=== PATIENT | female | born 1985 | race Caucasian/White ===

== ENCOUNTER 2018-01-08 15:08 | Emergency (ER) | payer BC ==
[2018-01-08] MEDS ORDERED: Sodium Chloride 0.9% 1000 ML 1,000 ML IV STA (16:13)
--- NOTE | 2018-01-08 16:13 | ERPHSYRPT ---
- History of Present Illness Time Seen by Provider: 01/08/18 16:10 Source: patient Exam Limitations: no limitations Patient Subjective Stated Complaint: STATES PALPITATIONS X 3 HOURS Triage Nursing Assessment: ALERT AND ORIENTED. PERIPHERAL PULESES WNL RADIAL AND PEDAL. LUNGS CLEAR TO AUSCULTATION. Physician History: The patient is a 32-year-old female complaining that she has palpitations that began about 4 hours ago. The palpitations are improving. She has a known hypothyroid condition and has been taking Synthroid. 3 weeks ago her Synthroid was increased to 125 g from 100 g daily. She rarely drinks caffeinated beverages but today she drank Mountain Dew prior to the palpitations. At first she said she was a little bit lightheaded but now things have improved and she is no longer lightheaded. She denies chest pain. Her past medical history is significant for hypothyroidism and tubal ligation. Timing/Duration: today, hour(s) (4), sudden, improved Activities at Onset: none Quality: fullness Severity of Pain-Max: none Severity of Pain-Current: none Modifying Factors: Improves With: nothing Nitro Today/Relief: no nitro taken today Aspirin Treatment Today: no aspirin today Associated Symptoms: denies symptoms, No shortness of breath Prior Chest Pain/Cardiac Workup: no prior chest pain Allergies/Adverse Reactions: No Known Drug Allergies Allergy (Unverified 01/22/15 08:22) Home Medications: Levothyroxine Sodium 100 Mcg [Synthroid 100 Mcg] 125 mcg PO DAILY 01/08/18 [History] Hx Tetanus, Diphtheria Vaccination/Date Given: Yes Hx Influenza Vaccination/Date Given: Yes (11/2017) Hx Pneumococcal Vaccination/Date Given: No - Review of Systems Constitutional: No Fever, No Chills Eyes: No Symptoms Ears, Nose, & Throat: No Symptoms Respiratory: No Cough, No Dyspnea Cardiac: Palpitations Abdominal/Gastrointestinal: No Abdominal Pain, No Nausea, No Vomiting, No Diarrhea Genitourinary Symptoms: No Dysuria Musculoskeletal: No Back Pain, No Neck Pain Skin: No Rash Neurological: No Dizziness, No Focal Weakness, No Sensory Changes Psychological: No Symptoms Endocrine: No Symptoms Hematologic/Lymphatic: No Symptoms Immunological/Allergic: No Symptoms All Other Systems: Reviewed and Negative - Past Medical History Pertinent Past Medical History: No Neurological History: No Pertinent History ENT History: No Pertinent History Cardiac History: No Pertinent History Respiratory History: No Pertinent History Endocrine Medical History: Hypothyroidism Musculoskeletal History: No Pertinent History GI Medical History: No Pertinent History History: No Pertinent History Psycho-Social History: No Pertinent History Female Reproductive Disorders: Other Other Medical History: d & c after miscarriage - Past Surgical History Past Surgical History: Yes Neuro Surgical History: No Pertinent History Cardiac: No Pertinent History Respiratory: No Pertinent History Gastrointestinal: No Pertinent History Genitourinary: No Pertinent History Musculoskeletal: No Pertinent History Female Surgical History: Tubal Ligation, Other Other Surgical History: d & c. cyst removed from jaw - Social History Smoking Status: Never smoker Exposure to second hand smoke: No Drug Use: none Patient Lives Alone: No - Female History Hx Last Menstrual Period: 01/01/18 Hx Now: No - Nursing Vital Signs Nursing Vital Signs: Initial Vital Signs Temperature 97.8 F 01/08/18 15:09 Pulse Rate 93 H 01/08/18 15:09 Respiratory Rate 18 01/08/18 15:09 Blood Pressure 141/92 01/08/18 15:09 O2 Sat by Pulse Oximetry 100 01/08/18 15:09 Pain Scale Pain Intensity 0 - Physical Exam General Appearance: no apparent distress, alert Eye Exam: PERRL/EOMI, eyes nml inspection Ears, Nose, Throat Exam: normal ENT inspection, moist mucous membranes Neck Exam: normal inspection, non-tender, supple Respiratory Exam: normal breath sounds, lungs clear, No respiratory distress Cardiovascular Exam: regular rate/rhythm, normal heart sounds, No edema Gastrointestinal/Abdomen Exam: soft, No tenderness, No mass Pelvic Exam: not done Rectal Exam: not done Back Exam: normal inspection, No CVA tenderness, No vertebral tenderness Extremity Exam: normal inspection, normal range of motion Neurologic Exam: alert, oriented x 3, cooperative, normal mood/affect, nml cerebellar function, sensation nml, No motor deficits Skin Exam: normal color, warm, dry Lymphatic Exam: No adenopathy SpO2 Interpretation: normal SpO2: 100 Oxygen Delivery: Room Air - Course EKG Interpreted by Me: RATE, Sinus Rhythm, NORMAL AXIS, NORMAL INTERVALS, NORMAL QRS, NORMAL ST-T Ordered Tests: Active Orders 24 hr Category Date Time Status Clean Catch Urine Specimen STAT Care 01/08/18 16:13 Active EKG-ER Only STAT Care 01/08/18 16:13 Active IV Insertion STAT Care 01/08/18 16:13 Active CHEST 2 VIEWS (PA AND LAT) Stat Exams 01/08/18 16:14 Taken CBC W DIFF Stat Lab 01/08/18 16:00 Completed CMP Stat Lab 01/08/18 16:00 Completed TROPONIN Q3H Lab 01/08/18 16:00 Completed TROPONIN Q3H Lab 01/08/18 19:15 Ordered TROPONIN Q3H Lab 01/08/18 22:15 Ordered TROPONIN Q3H Lab 01/09/18 01:15 Ordered TROPONIN Q3H Lab 01/09/18 04:15 Ordered UA W/RFX UR CULTURE Stat Lab 01/08/18 16:14 Uncollected Urine Triage Profile Stat Lab 01/08/18 16:14 Uncollected Medication Summary Generic Name Dose Route Start Last Admin Trade Name Freq PRN Reason Stop Dose Admin Sodium Chloride 1,000 mls @ 999 mls/hr 01/08/18 16:13 01/08/18 16:29 Sodium Chloride 0.9% 1000 Ml IV 01/08/18 17:13 999 mls/hr .Q1H1M STA Administration Discontinued Medications Generic Name Dose Route Start Last Admin Trade Name Freq PRN Reason Stop Dose Admin Sodium Chloride Confirm 01/08/18 16:28 Sodium Chloride 0.9% 1000 Ml Administered 01/08/18 16:29 Dose 1,000 mls @ ud .ROUTE .STK-MED ONE Lab/Rad Data: Laboratory Result Diagrams 01/08/18 16:00 01/08/18 16:00 Laboratory Results 01/08/18 01/08/18 01/08/18 Range/Units 16:00 16:00 16:00 WBC 6.1 (4.0-10.5) K/mm3 RBC 3.87 L (4.1-5.4) M/mm3 Hgb 12.6 (12.0-16.0) gm/dl Hct 38.6 (35-47) % MCV 99.7 (78-100) fl MCH 32.5 H (26-32) pg MCHC 32.6 (32-36) g/dl RDW 12.9 (11.5-14.0) % Plt Count 143 L (150-450) K/mm3 MPV 13.9 H (6-9.5) fl Gran % 54.0 (36.0-66.0) % Eos # (Auto) 0.14 (0-0.5) Absolute Lymphs (auto) 2.06 (1.0-4.6) Absolute Monos (auto) 0.57 (0.0-1.3) Lymphocytes % 34.0 (24.0-44.0) % Monocytes % 9.4 (0.0-12.0) % Eosinophils % 2.3 (0.00-5.0) % Basophils % 0.3 (0.0-0.4) % Absolute Granulocytes 3.27 (1.4-6.9) Basophils # 0.02 (0-0.4) Sodium 141 (137-145) mmol/L Potassium 3.8 (3.5-5.1) mmol/L Chloride 106 (98-107) mmol/L Carbon Dioxide 25 (22-30) mmol/L Anion Gap 14.9 (5-15) MEQ/L BUN 13 (7-17) mg/dL Creatinine 0.67 (0.52-1.04) mg/dL Estimated GFR > 60.0 ML/MIN Glucose 110 H (74-106) mg/dL Calcium 9.5 (8.4-10.2) mg/dL Total Bilirubin 0.70 (0.2-1.3) mg/dL AST 18 (14-36) U/L ALT 13 (0-35) U/L Alkaline Phosphatase 55 (38-126) U/L Troponin I < 0.012 (0.000-0.034) ng/mL Serum Total Protein 7.9 (6.3-8.2) g/dL Albumin 4.9 (3.5-5.0) g/dL - Progress Progress: improved Air Movement: good Blood Culture(s) Obtained: No Antibiotics given: No Counseled pt/family regarding: lab results, diagnosis, rad results - Departure Time of Disposition: 16:51 Departure Disposition: Home Clinical Impression: Heart palpitations Condition: Stable Critical Care Time: No Referrals: JENNY LEON MD [Primary Care Provider] - Additional Instructions: You have heart palpitations. The palpitations may have been caused by the caffeinated drink you had this morning. Please refrain from caffeinated drinks. Follow-up with your primary medical doctor next week. If the condition returns and he become lightheaded, do not hesitate to return to the ER.
[2018-01-08 16:20] LABS: BASOPHIL % 0.3 % (0.0-0.4); Basophil (Absolute #) 0.02 (0-0.4); Eosinophil % 2.3 % (0.00-5.0); Eosinophil (Absolute #) 0.14 (0-0.5); Granulocyte Absolute (ANC) 3.27 (1.4-6.9); Hematocrit 38.6 % (35-47); Hemoglobin 12.6 gm/dl (12.0-16.0); Lymphocyte (Absolute #) 2.06 (1.0-4.6); Mean Cell Volume 99.7 fl (78-100); Mean Corpuscular Hgb Concent. 32.6 g/dl (32-36); Mean Platelet Volume 13.9 fl (6-9.5); Monocyte (Absolute #) 0.57 (0.0-1.3); Monocytes % 9.4 % (0.0-12.0); Platelet Count 143 K/mm3 (150-450); Red Blood Count 3.87 M/mm3 (4.1-5.4); Red Cell Distribution Width 12.9 % (11.5-14.0); White Blood Count 6.1 K/mm3 (4.0-10.5)
[2018-01-08 16:25] LABS: ALBUMIN 4.9 g/dL (3.5-5.0); ALKALINE PHOSPHATASE 55 U/L (38-126); ANION GAP 14.9 MEQ/L (5-15); BLOOD UREA NITROGEN 13 mg/dL (7-17); CHLORIDE 106 mmol/L (98-107); Calcium 9.5 mg/dL (8.4-10.2); Carbon Dioxide 25 mmol/L (22-30); Creatinine 1 0.67 mg/dL (0.52-1.04); Glucose 110 mg/dL (74-106); Potassium 3.8 mmol/L (3.5-5.1); SGOT/AST 18 U/L (14-36); SGPT/ALT 13 U/L (0-35); SODIUM 141 mmol/L (137-145); Total Protein 7.9 g/dL (6.3-8.2)
[2018-01-08] MEDS ORDERED: Sodium Chloride 0.9% 1000 ML 1,000 ML ONE (16:28)
[2018-01-08 16:30] LABS: Mean Corpuscular Hemoglobin 32.5 pg (26-32)
[2018-01-08 16:53] VITALS: O2SAT 100
[2018-01-08 17:04] VITALS: BP 115/80; PULSE 80
--- NOTE | 2018-01-08 22:43 | XRAY ---
Indication: Palpitations. Comparison: None PA/lateral chest demonstrates normal heart, lungs, and bony thorax.
== END 2018-01-08 17:08 | disposition home or self-care (01) ==
LOC: ED 15:08
DX: R00.2 Palpitations (principal); E03.9 Hypothyroidism, unspecified; Z79.899 Other long term (current) drug therapy
CPT/HCPCS: 36000; 36415; 71046; 80053; 84484; 85025; 93005; 96360; 99284

== ENCOUNTER 2018-02-15 11:28 | Day surgery (SDC) | payer BC ==
--- NOTE | 2018-02-15 09:34 | HP ---
DATE OF SURGERY: 02/15/2018 HISTORY OF PRESENT ILLNESS: The patient is a 32 year-old had a prior tubal, increased symptoms and bulge mid abdomen, pain at this area. It is felt she had incarcerated ventral hernia mid abdomen prior history of tubal in the past. PAST MEDICAL HISTORY: Hypothyroidism. Prior history of inflammatory bowel disease in the past. Platelets have been okay according to the patient. PAST SURGICAL HISTORY: D&C in the past. Tubal. Cyst in the past. MEDICATIONS: Levothyroxine for hypothyroidism. ALLERGIES: NKDA. FAMILY HISTORY: Heart disease, cancer, diabetes. SOCIAL HISTORY: Denied smoking. Drinks occasional alcohol denies abuse. REVIEW OF SYSTEMS: Twelve systems reviewed per admission assessment. Negative or noncontributory as above and per preadmission questionnaire. PHYSICAL EXAMINATION: GENERAL: No acute distress. HEENT: Sclerae nonicteric. NECK: No JVD. CHEST: Equal excursion, nonlabored breathing. CVS: Regular rate and rhythm. ABDOMEN: Soft. No peritoneal signs. Incarcerated ventral hernia. She had prior tubal there. EXTREMITIES: No significant edema. NEURO: Alert, oriented, moving extremities symmetrically. No gross motor deficits noted. IMPRESSION: Incarcerated ventral hernia mid abdomen. She had a prior tubal there in weakened area. Now has a hernia that is likely incarcerated with preperitoneal fat. I feel she will benefit from open repair. Risks and benefits explained in detail but not limited to bleeding or infection, risk of bowel injury or perforation, risk of adhesion, scar formation or obstruction. Likely will use mesh to minimize recurrence. Risk of mesh infection possibly requiring removal, risk of hematoma or seroma formation, risk of scar formation or adhesions or obstruction down the road. Remote risk of mesh fracture or failure possibly creating issues to viscera or other structures possibly requiring other procedures, general risk of anesthesia, deep venous thrombosis, pulmonary embolism, pneumonia, overall risk of hernia recurrence, general risk of aches, pains, burning or numbness possible long-term or chronic in nature. She understands and agrees to the planned procedure and will proceed with outpatient open repair of incarcerated ventral hernia with mesh as an outpatient.
[~2018-02-15 11:28] MED LIST: Lactated Ringers 1,000 ML IV ONE; Sensorcaine 0.25% 10 ML ONE
[2018-02-15] MEDS ORDERED: TORAdol 30 mg Injection IV ONE (11:29)
[2018-02-15] MEDS ORDERED: DIPRIVAN 200 MG/20 ML IV ONE (11:29)
[2018-02-15] MEDS ORDERED: Zemuron 100 MG/10 ML IV ONE (11:29)
[2018-02-15] MEDS ORDERED: Decadron 4 MG INJ IV ONE (11:29)
[2018-02-15] MEDS ORDERED: Zofran 4 MG/2 ML VIAL IV ONE (11:29)
[2018-02-15] MEDS ORDERED: SUBLIMAZE 100 MCG/2 ML IV ONE (11:29)
[2018-02-15] MEDS ORDERED: CEFAZOLIN 2 GM-D5W BAG** 2 GM/50 ML ML IV ONE (12:12)
[2018-02-15] MEDS ORDERED: Lactated Ringers 1,000 ML IV ONE (12:12)
[2018-02-15] MEDS ORDERED: Lactated Ringers 1,000 ML IV SCH (12:30)
[2018-02-15] MEDS ORDERED: CEFAZOLIN 2 GM-D5W BAG** 2 GM/50 ML ML IV SCH (12:30)
[2018-02-15] MEDS ORDERED: DILAUDID 2 MG INJECTION ONE (15:04)
[2018-02-15] MEDS ORDERED: Zofran 4 MG/2 ML VIAL ONE (15:04)
[2018-02-15] MEDS ORDERED: MORPHINE SULFATE 4 MG INJ IV PRN (16:18)
[2018-02-15] MEDS ORDERED: NORCO 5/325 MG PO PRN (16:19)
[2018-02-15] MEDS ORDERED: NORCO 5/325 MG ONE (16:20)
[2018-02-15] MEDS ORDERED: MORPHINE SULFATE 4 MG INJ ONE (16:20)
[2018-02-15 16:29] VITALS: O2SAT 99
[2018-02-15 16:49] VITALS: BP 119/74; PULSE 63
--- NOTE | 2018-02-16 10:19 | OP ---
SURGERY DATE/TIME: 02/15/2018 1400 PREOPERATIVE DIAGNOSIS: Incarcerated ventral hernia. POSTOPERATIVE DIAGNOSIS: Incarcerated ventral hernia. PROCEDURE: Open repair of incarcerated ventral hernia with mesh. SURGEON: Dr. Ayaz Faith. ANESTHESIA: General. ESTIMATED BLOOD LOSS: Minimal. INDICATIONS: As noted above. Risks and benefits explained in detail and not limited to and consent obtained. DESCRIPTION OF PROCEDURE AND FINDINGS: The patient is taken to the operating room. General anesthesia induced. Abdomen prepped and draped in usual sterile fashion. After official time out and no disagreement with planned procedure, a transverse incision made through old scar from prior tubal area. Dissection carried down through the old scar down to the incarcerated hernia. It was carefully freed from surrounding tissue, tracked down to the fascia incarcerated attachments released allowing the incarcerated preperitoneal fat and omentum reduced back down in the abdomen. The fascia was cleared circumferentially around posteriorly. It was felt 4.[address] mesh the most appropriate size carefully inserted. Straps pulled upwards staying a good centimeter apart around the edge with 0 Prolene in tension free manner. The attenuated fascia was then closed over the top of the mesh and a second layer repair with interrupted 0 PDS. 0.25% Marcaine local injected along the fascial defect along the skin area in field patter. Irrigation accomplished. Good hemostasis noted. Tissue was tacked back down to the level of fascia with 3-0 Vicryl. Superficial and deep subcu closed with 3-0 Vicryl. Skin closed with 4-0 Vicryl running subcuticular fashion. Steri-Strips and sterile dressing applied. The patient tolerated the procedure well. Light pressure dressing up above was placed as well as sterile dressing and abdominal binder. The patient tolerated the procedure well. There were no immediate complications. Findings discussed with the family out in the waiting area.
== END 2018-02-15 17:13 | disposition home or self-care (01) ==
LOC: SDC 11:28
PROVIDERS: ATTEND Surgery
DX: K43.9 Ventral hernia without obstruction or gangrene (principal)
CPT/HCPCS: 84703; 94250; C1781; J0690; J1100; J1170; J1885; J2270; J2405; J2704; J3010; L0625; A9270-GY

== ENCOUNTER 2018-02-15 21:01 | Emergency (ER) | payer BC ==
[2018-02-15 21:31] VITALS: O2SAT 97
--- NOTE | 2018-02-15 21:45 | ERPHSYRPT ---
- History of Present Illness Time Seen by Provider: 02/15/18 21:38 Source: patient Exam Limitations: no limitations Patient Subjective Stated Complaint: pt is alert and oriented. pt is ambulatory with a steady gait. pt had hernia repair surgery today and is having bleeding from incision site. pt has red drainage from incision that has soaked through her dressing. pt is hemodynamically stable. Triage Nursing Assessment: see above Physician History: The patient is a 32-year-old female with her complaining of bleeding onto her surgical bandages this evening after having an umbilical hernia repaired at around 2:00 this afternoon at this hospital. She did not unwrap her bandages. She called the surgical nurse who advised her to come to the ER to be evaluated. She has some mild pain. The surgery was uneventful. She denies fever or chills. Timing/Duration: today, gradual onset Quality: other (bleeding) Severity: mild Location: torso Possible Causes: other (surgical wound) Associated Symptoms: denies symptoms Allergies/Adverse Reactions: No Known Drug Allergies Allergy (Verified 02/15/18 12:18) Home Medications: Levothyroxine Sodium 100 Mcg [Synthroid 100 Mcg] 125 mcg PO DAILY 01/08/18 [History] Hx Tetanus, Diphtheria Vaccination/Date Given: Yes Hx Influenza Vaccination/Date Given: Yes (11/2017) Hx Pneumococcal Vaccination/Date Given: No Immunizations Up to Date: Yes - Review of Systems Constitutional: No Fever, No Chills Eyes: No Symptoms Ears, Nose, & Throat: No Symptoms Respiratory: No Cough, No Dyspnea Cardiac: No Chest Pain, No Edema, No Syncope Abdominal/Gastrointestinal: No Abdominal Pain, No Nausea, No Vomiting, No Diarrhea Genitourinary Symptoms: No Dysuria Musculoskeletal: No Back Pain, No Neck Pain Skin: Other (surgical wound) Neurological: No Dizziness, No Focal Weakness, No Sensory Changes Psychological: No Symptoms Endocrine: No Symptoms Hematologic/Lymphatic: No Symptoms Immunological/Allergic: No Symptoms All Other Systems: Reviewed and Negative - Past Medical History Pertinent Past Medical History: No Neurological History: No Pertinent History ENT History: No Pertinent History Cardiac History: No Pertinent History Respiratory History: No Pertinent History Endocrine Medical History: Hypothyroidism Musculoskeletal History: No Pertinent History GI Medical History: Hernia History: No Pertinent History Psycho-Social History: No Pertinent History Female Reproductive Disorders: Other Other Medical History: d & c after miscarriage, tubal - Past Surgical History Past Surgical History: Yes Neuro Surgical History: No Pertinent History Cardiac: No Pertinent History Respiratory: No Pertinent History Gastrointestinal: Hernia Repair Genitourinary: No Pertinent History Musculoskeletal: No Pertinent History Female Surgical History: Tubal Ligation, Other Other Surgical History: d & c. cyst removed from jaw - Social History Smoking Status: Never smoker Exposure to second hand smoke: No Drug Use: none Patient Lives Alone: No - Female History Hx Now: No - Nursing Vital Signs Nursing Vital Signs: Initial Vital Signs Temperature 97.6 F 02/15/18 21:01 Pulse Rate 98 H 02/15/18 21:01 Respiratory Rate 18 02/15/18 21:01 Blood Pressure 117/73 02/15/18 21:01 O2 Sat by Pulse Oximetry 97 02/15/18 21:01 Pain Scale Pain Intensity 4 - Physical Exam General Appearance: no apparent distress, alert Eye Exam: PERRL/EOMI, eyes nml inspection Ears, Nose, Throat Exam: normal ENT inspection, pharynx normal, moist mucous membranes Neck Exam: normal inspection, non-tender, supple, full range of motion Respiratory Exam: normal breath sounds, lungs clear, No respiratory distress Cardiovascular Exam: regular rate/rhythm, normal heart sounds Gastrointestinal/Abdomen Exam: tenderness (mild tenderness at surgical site) Pelvic Exam: not done Rectal Exam: not done Back Exam: normal inspection, normal range of motion, No CVA tenderness, No vertebral tenderness Extremity Exam: normal inspection, normal range of motion Neurologic Exam: alert, oriented x 3, cooperative, normal mood/affect, sensation nml, No motor deficits Skin Exam: ecchymosis, laceration, other (Examination of the surgical site around the umbilicus: There is an intact surgical wound with buried sutures. There is no active bleeding nor is there any oozing of fluid from the wound at this time. The surrounding area has some very mild ecchymosis at this time. There is some serosanguineous led on the bandages that were covering the wound. The wound looks appropriate at this time.) SpO2 Interpretation: normal SpO2: 97 Oxygen Delivery: Room Air - Progress Progress: improved Progress Note: 02/15/18 21:49 new bandages applied. - Departure Time of Disposition: 21:49 Departure Disposition: Home Clinical Impression: Encounter for surgical wound dressing change Condition: Stable Critical Care Time: No Referrals: JENNY LEON MD [Primary Care Provider] - Additional Instructions: The hernia repair surgical wound is intact and is not bleeding at this time. The dressing was changed. The wound looks very good at this time. Any further problems, contact the surgical center or do not hesitate to return to the ER.
[2018-02-15 21:55] VITALS: BP 90/51; PULSE 78
== END 2018-02-15 22:01 | disposition home or self-care (01) ==
LOC: ED 21:01
DX: Z48.01 Encounter for change or removal of surgical wound dressing (principal)
CPT/HCPCS: 00752; 84703; 94250; 99283; C1781; J0690; J1100; J1170; J1885; J2270; J2405; J2704; J3010; L0625; A9270-GY